=== PATIENT | male | born 1950 | race Caucasian/White ===

== ENCOUNTER → 2019-07-04 | Outpatient (CLI) | payer MEDICARE | END | disposition home or self-care (01) | LOC: RAH 15:02 | PROVIDERS: ATTEND Family Medicine | DX: I11.9 Hypertensive heart disease without heart failure (principal) | CPT/HCPCS: 71046 ==

== ENCOUNTER → 2020-01-09 | Outpatient (CLI) | payer OTHER, MEDICARE | END | disposition home or self-care (01) | LOC: RAH 11:20 | PROVIDERS: ATTEND Family Medicine | DX: Z01.811 Encounter for preprocedural respiratory examination (principal); I51.7 Cardiomegaly; M47.814 Spondylosis without myelopathy or radiculopathy, thoracic region; I70.0 Atherosclerosis of aorta | CPT/HCPCS: 71046 ==

== ENCOUNTER → 2020-07-10 | Outpatient (CLI) | payer OTHER, MEDICARE | END | disposition home or self-care (01) | LOC: RAH 12:36 | PROVIDERS: ATTEND Family Medicine | DX: S43.005S Unspecified dislocation of left shoulder joint, sequela (principal); M19.012 Primary osteoarthritis, left shoulder; X58.XXXS Exposure to other specified factors, sequela | CPT/HCPCS: 73221 ==

== ENCOUNTER → 2020-07-22 | Outpatient (CLI) | payer OTHER, MEDICARE | END | disposition home or self-care (01) | LOC: RAH 12:24 | PROVIDERS: ATTEND Family Medicine | DX: S43.005A Unspecified dislocation of left shoulder joint, initial encounter (principal); M25.712 Osteophyte, left shoulder; X58.XXXA Exposure to other specified factors, initial encounter; Y93.89 Activity, other specified; Y92.89 Other specified places as the place of occurrence of the external cause; Y99.8 Other external cause status | CPT/HCPCS: 73030 ==

== ENCOUNTER → 2020-09-27 | Outpatient (CLI) | payer OTHER, MEDICARE | END | disposition home or self-care (01) | LOC: RAH 13:38 | PROVIDERS: ATTEND Family Medicine | DX: M19.012 Primary osteoarthritis, left shoulder (principal); M75.100 Unspecified rotator cuff tear or rupture of unspecified shoulder, not specified as traumatic; M25.512 Pain in left shoulder; R60.9 Edema, unspecified | CPT/HCPCS: 73221 ==

== ENCOUNTER → 2025-08-08 | Outpatient (CLI) | payer OTHER, MEDICARE ==
[2025-08-08 14:27] LABS: ASPARTATE AMINOTRANSFERASE 18.0 U/L (10-37); CREATININE 1.3 mg/dL (0.5-1.3); GLOMERULAR FILTR. RATE CALC 58.0 mL/min (>90); GLUCOSE,RANDOM 90.0 mg/dL (70-105); SODIUM SERUM 137.0 mmol/L (136-145); TOTAL PROTEIN, SERUM 7.0 g/dL (6.0-8.3); UREA NITROGEN, BLOOD 20.0 mg/dL (7-18)
== END | disposition home or self-care (01) ==
LOC: LAB 13:32
PROVIDERS: ATTEND Internal Medicine Gastroenterology
DX: R93.5 Abnormal findings on diagnostic imaging of other abdominal regions, including retroperitoneum (principal)
CPT/HCPCS: 36415; 80053

== ENCOUNTER → 2025-08-10 | Outpatient (CLI) | payer OTHER, MEDICARE ==
[~2025-08-10] MED LIST: GADOTERATE MEGLUMINE 10 MMOL/20 ML VIAL IV ONE
--- NOTE | 2025-08-11 06:42 | HMCIMG ---
EXAM: MR Abdomen with and without Intravenous Contrast CLINICAL HISTORY: Patient presents for evaluation of abnormal findings on prior abdominal imaging. TECHNIQUE: Multisequence, multiplanar magnetic resonance images of the abdomen obtained with and without intravenous contrast. COMPARISON: None provided. FINDINGS: LOWER THORAX: No pleural effusion. LIVER: Mild hepatomegaly; right hepatic lobe measures up to 17.0 cm craniocaudal. Hepatic steatosis with rounded margins. GALLBLADDER AND BILE DUCTS: Gallbladder distended with multiple 3???4 mm calculi. No acute pericholecystic pathology. No biliary duct dilatation. No ductal stones. PANCREAS: Few well-defined T2-weighted hyperintense non-enhancing cystic lesions in the pancreatic body, showing communication with the pancreatic duct; largest measures 3.6 x 3.1 x 3.2 cm, likely representing branch-type intraductal papillary mucinous neoplasm. No ductal dilation. SPLEEN: Mildly enlarged, measuring 12.2 cm. ADRENALS: 2.0 x 2.5 cm left adrenal nodule which demonstrates loss of signal on out of phase images and is consistent with an adenoma. KIDNEYS: Bilateral subcentimetric simple cortical cysts. No hydronephrosis or solid mass. STOMACH AND BOWEL: Limited evaluation demonstrates no acute process. Uncomplicated duodenal diverticulum. Uncomplicated colonic diverticula. OTHER FINDINGS: Small hiatus hernia. 10.0 cm epigastric hernia containing small bowel loops, mesenteric fat, and vessels. Mild cardiomegaly. IMPRESSION: Cholelithiasis without acute cholecystitis. No biliary duct dilatation. No ductal stones. 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 Left adrenal adenoma. 10.0 cm epigastric hernia containing bowel loops and mesenteric fat; surgical consultation recommended. Bilateral renal simple cortical cysts. No hydronephrosis. Mild hepatomegaly with diffuse steatosis and rounded margins; liver parenchymal disease cannot be excluded. Uncomplicated duodenal and colonic diverticula. Small hiatus hernia. Mild cardiomegaly. /[place]
== END | disposition home or self-care (01) ==
LOC: RAH 07:50
PROVIDERS: ATTEND Internal Medicine Gastroenterology
DX: K80.20 Calculus of gallbladder without cholecystitis without obstruction (principal); D35.02 Benign neoplasm of left adrenal gland; K44.9 Diaphragmatic hernia without obstruction or gangrene; N28.1 Cyst of kidney, acquired; K57.30 Diverticulosis of large intestine without perforation or abscess without bleeding; D13.6 Benign neoplasm of pancreas; I51.7 Cardiomegaly; R16.0 Hepatomegaly, not elsewhere classified; R93.5 Abnormal findings on diagnostic imaging of other abdominal regions, including retroperitoneum
CPT/HCPCS: 74183; A9575